=== PATIENT | male | born 1955 | race Caucasian/White ===

== ENCOUNTER 2018-12-24 16:37 | Emergency (ER) | payer BC ==
[~2018-12-24] VITALS: Ht 182.9 cm; Wt 106.6 kg
[2018-12-24] MEDS ORDERED: METFORMIN HCL500 MG PO (16:50)
[2018-12-24] MEDS ORDERED: COZAAR 25MG TAB25 M1 PO (16:50)
[2018-12-24] MEDS ORDERED: ATORVASTATIN CA40 MG PO (16:50)
[2018-12-24] MEDS ORDERED: EFFIENT10 MG PO (16:50)
[2018-12-24] MEDS ORDERED: CARVEDILOL3.125 MG PO (16:52)
[2018-12-24] MEDS ORDERED: BUTALB-APAP-CA1 EACH PO (16:52)
[2018-12-24] MEDS ORDERED: ASPIRIN81 M2 PO (16:53)
[2018-12-24] MEDS ORDERED: DEPAKOTE 250MG250 M1 PO (16:53)
[2018-12-24] MEDS ORDERED: TESTONE CI200 MG/1 M IM (16:54)
[2018-12-24] MEDS ORDERED: CLOBETASOL PROP50 G1 TOP (16:55)
[2018-12-24] MEDS ORDERED: BACTRIM DS TAB1 EACH PO (18:34)
[2018-12-24] MEDS ORDERED: NORCO 10-325 T1 EACH PO (18:34)
[2018-12-24] MEDS ORDERED: KEFLEX500 M1 PO (18:34)
[2018-12-24 19:01] VITALS: BP 147/107
== END 2018-12-24 19:02 | disposition home or self-care (01) ==
LOC: M.ERS 16:37
DX: S68.123A Partial traumatic metacarpophalangeal amputation of left middle finger, initial encounter (principal); E11.9 Type 2 diabetes mellitus without complications; I10 Essential (primary) hypertension; I25.2 Old myocardial infarction; W31.89XA Contact with other specified machinery, initial encounter; Y93.89 Activity, other specified; Y92.89 Other specified places as the place of occurrence of the external cause; Y99.8 Other external cause status